=== PATIENT | female | born 1995 | race Hispanic/Latino ===

== ENCOUNTER 2023-08-12 10:42 | Emergency (ER) | payer SELFPAY ==
[2023-08-12 11:07] LABS: Absolute Lymphocytes (CBC) 1.1 K/uL (0.7-4.9); Absolute Neutrophil 8.9 K/uL (1.8-8.0); Basophils % 0.1 % (0-1.3); Eosinophils % 0.2 % (0-4.4); Hematocrit 33.4 % (36.0-45.0); Hemoglobin 10.8 g/dL (12.0-15.0); Lymphocytes % 9.8 % (15.3-44.8); MCH 29.7 pg (27.0-35.0); MCHC 32.5 g/dL (32.0-36.0); MCV 91.4 fL (80-100); MPV 8.9 fL (7.6-11.3); Neutrophils % 80.9 % (41.7-73.7); Platelets 252 thou/uL (152-406); RBC Red Blood Cell Count 3.65 M/uL (3.86-4.86); Red Cell Distribution Width 13.8 % (12.1-15.2)
[2023-08-12 11:13] LABS: Specific Gravity 1.015 (1.005-1.030)
[2023-08-12 11:16] LABS: Specific Gravity 1.015 (1.005-1.030); Sqamous Epithelial <5 /HPF (None Seen); Transitional Epithelial <5 /HPF (None Seen); Urine Bacteria <20 /HPF (<20); Urine Bilirubin NEGATIVE (Negative); Urine Blood 2+ (Negative); Urine Clarity Extremely Turbid (Clear); Urine Color Light-Yellow (Yellow); Urine Culture Reflex Order REFLEXED; Urine Glucose NEGATIVE (Negative); Urine Ketones NEGATIVE (Negative); Urine Microscopic Reflex YN ORDER UMIC; Urine Mucus Slight /HPF (None Seen); Urine Nitrite NEGATIVE (Negative); Urine Protein 1+ (Negative); Urine RBC 21-50 /HPF (None Seen); Urine Urobilinogen Normal (Normal); Urine WBC >50 /HPF (<5); Urine pH 5.5 (5.0-7.0)
[2023-08-12 11:26] LABS: Albumin 3.3 g/dL (3.4-5.0); Albumin/Globulin Ratio 0.7 (1.1-1.8); Anion Gap 9.6 mEq/L (5.0-15.0); Bilirubin Total 0.2 mg/dL (0.2-1.0); Globulin 4.7 g/dL (2.3-3.5); Potassium 3.6 mEq/L (3.5-5.1)
--- NOTE | 2023-08-12 11:41 | RAD REPORT ---
EXAM DESCRIPTION: CTAbdomen Pelvis W Contrast - 08/12/2023 11:30 am CLINICAL HISTORY: Abdominal pain. ABD PAIN COMPARISON: No comparisons TECHNIQUE: Biphasic CT imaging of the abdomen and pelvis was performed with 100 ml non-ionic IV cont rast. All CT scans are performed using dose optimization technique as appropriate and may include automated exposure control or mA/KV adjustment according to patient size. FINDINGS: The lung bases are clear. The liver, spleen, pancreas, adrenal glands and kidneys are within normal limits. No bowel obstruction, free air, intra-abdominal free fluid or abscess. Small volume of pelvic free fl uid is likely physiologic. The appendix is normal. No evidence of significant lymphadenopathy. No suspicious bony findings. IMPRESSION: No acute intra-abdominal or pelvic finding.
--- NOTE | 2023-08-12 11:44 | RAD REPORT ---
EXAM DESCRIPTION: US - Abdomen Exam Limited - 08/12/2023 11:37 am CLINICAL HISTORY: ABD PAIN COMPARISON: No comparisons FINDINGS: The gallbladder demonstrates no gallstones. No pericholecystic fluid or gallbladder wall t hickening. The common bile duct is normal measuring 4 mm. The liver demonstrates no findings of intrahepatic biliary dilatation. IMPRESSION: Unremarkable examination.
[2023-08-12] MEDS ORDERED: CIPROFLOXACIN HCL 500 MG TAB ONE (12:10)
--- NOTE | 2023-08-12 12:27 | RAD REPORT ---
EXAM DESCRIPTION: RAD - Chest Single View - 08/12/2023 12:21 pm CLINICAL HISTORY: right sided chest pain Chest pain. COMPARISON: No comparisons FINDINGS: Portable technique limits examination quality. The lungs are grossly clear. The heart is normal in size. No displaced fractures. IMPRESSION: No acute intrathoracic process suspected.
--- NOTE | 2023-08-12 12:36 | ER ---
Nurse's Notes [facility] Name: Ynes Ray Age: 28 yrs Sex: Female : 1995 Arrival Date: 08/12/2023 Time: 10:42 Bed 20 Private MD: Diagnosis: Abdominal pain, unspecified;UTI/ Urinary tract infection, site not specified Presentation: 08/11 10:48 Chief complaint: Patient states: lower abd pain radiating to back , X 1 week, + n/v, iw fever chills, no urinary symptoms. Coronavirus screen: Client presents with at least one sign or symptom that may indicate coronavirus-19. Ebola Screen: Patient negative for fever greater than or equal to 101.5 degrees Fahrenheit, and additional compatible Ebola Virus Disease symptoms Patient denies exposure to infectious person. Patient denies travel to an Ebola-affected area in the 21 days before illness onset. No symptoms or risks identified at this time. Initial Sepsis Screen: Does the patient meet any 2 criteria? No. Patient's initial sepsis screen is negative. Does the patient have a suspected source of infection? No. Patient's initial sepsis screen is negative. Risk Assessment: Do you want to hurt yourself or someone else? Patient reports no desire to harm self or others. Onset of symptoms was August 05, 2023. 10:48 Method Of Arrival: Ambulatory iw 10:48 Acuity: MARILYNN 3 iw Historical: - Allergies: 10:49 No Known Allergies; iw - Home Meds: 10:49 None [Active]; iw - PMHx: 10:49 None; iw - PSHx: 10:49 None; iw - Immunization history:: Adult Immunizations up to date. - Infectious Disease History:: Denies. - Social history:: Smoking status: Patient denies any tobacco usage or history of. - Family history:: not pertinent. - Hospitalizations: : No recent hospitalization is reported. Screenin:03 [facility] ED Fall Risk Assessment (Adult) History of falling in the last 3 months, ld1 including since admission No falls in past 3 months (0 pts). Abuse screen: Denies threats or abuse. Denies injuries from another. Nutritional screening: No deficits noted. Tuberculosis screening: No symptoms or risk factors identified. Assessment: 11:03 General: Appears in no apparent distress. uncomfortable, Behavior is calm, cooperative, ld1 appropriate for age. Pain: Complains of pain in right lower quadrant Pain does not radiate. Pain currently is 8 out of 10 on a pain scale. Quality of pain is described as throbbing, Pain began suddenly, Is continuous. Neuro: Level of Consciousness is awake, alert, obeys commands, Oriented to person, place, time, situation. Cardiovascular: Capillary refill < 3 seconds Patient's skin is warm and dry. Cardiovascular:. Respiratory: Airway is patent Respiratory effort is even, unlabored. GI: Abdomen is round non-distended, Bowel sounds present X 4 quads. Abd is soft Abdomen is tender to palpation in right lower quadrant and left lower quadrant Reports lower abdominal pain, nausea, vomiting. : No signs and/or symptoms were reported regarding the genitourinary system. EENT: No signs and/or symptoms were reported regarding the EENT system. Derm: No signs and/or symptoms reported regarding the dermatologic system. Musculoskeletal: No signs and/or symptoms reported regarding the musculoskeletal system. Vital Signs: 10:48 BP 121 / 54; Pulse 85; Resp 16; Temp 99; Pulse Ox 96% on R/A; Weight 78.47 kg; Height 5 iw ft. 2 in. ; Pain 8/10; 11:03 BP 111 / 65; Pulse 85; Resp 18; Pulse Ox 100% on R/A; Pain 8/10; ld1 10:48 Body Mass Index 31.64 (78.47 kg, 157.48 cm) iw 10:48 Pain Scale: Adult iw 11:03 Pain Scale: Adult ld1 ED Course: 10:43 Patient arrived in ED. rg4 10:43 Sonido Wilson MD is Attending Physician. rn 10:49 Triage completed. iw 10:50 Arm band placed on. iw 10:53 Marielle Tinoco, TONE is Primary Nurse. ld1 11:03 Patient has correct armband on for positive identification. Placed in gown. Bed in low ld1 position. Call light in reach. Side rails up X2. bin packer on. Pulse ox on. NIBP on. Door closed. Noise minimized. Warm blanket given. 11:03 Urinalysis w/ reflexes Sent. ld1 11:03 Test, Urine Sent. ld1 11:03 No provider procedures requiring assistance completed. Inserted saline lock: 20 gauge ld1 in right antecubital area, using aseptic technique. Blood collected. 11:32 CT Abd/Pelvis - IV Contrast Only In Process Unspecified. EDMS 11:39 US Abdomen Limited In Process Unspecified. EDMS 12:22 XRAY Chest (1 view) In Process Unspecified. EDMS Administered Medications: 12:16 Drug: Ciprofloxacin PO 500 mg PO once Route: PO; ld1 Medication: 11:03 VIS not applicable for this client. ld1 Outcome: 12:35 Discharge ordered by . rn 13:00 Patient left the ED. ld1 Signatures: Dispatcher [employer] EDMS Tila Salguero RN RN iw Nieto, Roman, MD MD rn Garcia, Rubi 4 Marielle Tinoco RN RN ld1 Corrections: (The following items were deleted from the chart) 10:50 10:48 Resp 16bpm; Pulse Ox 96% RA; Temp 99F; iw iw
--- NOTE | 2023-08-12 12:36 | EDPHYS ---
Physician Documentation [facility] Name: Ynes Ray Age: 28 yrs Sex: Female : 1995 Arrival Date: 08/12/2023 Time: 10:42 Bed 20 Private MD: ED Physician Sonido Wilson HPI: 08/11 10:59 This 28 yrs old Female presents to ER via Ambulatory with complaints of rn Abdominal Pain, Vomiting. 10:59 The patient presents to the emergency department with nausea, vomiting, abdominal pain. rn Onset: The symptoms/episode began/occurred 3 day(s) ago. Possible causes: unknown. The symptoms are aggravated by nothing. The symptoms are alleviated by nothing. Severity of symptoms: At their worst the symptoms were mild. The patient has not experienced similar symptoms in the past. The patient has not recently seen a physician. Patient reports right lower quadrant and right upper quadrant abdominal pain that began 3 to 4 days ago. Associated with nausea and vomiting and decreased appetite. Reports chills. No diarrhea. No blood in stool. No hematemesis.. Historical: - Allergies: 10:49 No Known Allergies; iw - Home Meds: 10:49 None [Active]; iw - PMHx: 10:49 None; iw - PSHx: 10:49 None; iw - Immunization history:: Adult Immunizations up to date. - Infectious Disease History:: Denies. - Social history:: Smoking status: Patient denies any tobacco usage or history of. - Family history:: not pertinent. - Hospitalizations: : No recent hospitalization is reported. ROS: 10:59 Constitutional: Negative for fever, chills, and weight loss, Cardiovascular: Negative rn for chest pain, palpitations, and edema, Respiratory: Negative for shortness of breath, cough, wheezing, and pleuritic chest pain, Abdomen/GI: Positive for abdominal pain and nausea Back: Negative for injury and pain, : Negative for injury, bleeding, discharge, and swelling, MS/Extremity: Negative for injury and deformity, Skin: Negative for injury, rash, and discoloration, Neuro: Negative for headache, weakness, numbness, tingling, and seizure, Exam: 10:59 Constitutional: This is a well developed, well nourished patient who is awake, alert, rn and in no acute distress. Cardiovascular: Regular rate and rhythm. No pulse deficits. Respiratory: No increased work of breathing, no retractions or nasal flaring. Abdomen/GI: Soft, mild epigastric and right upper quadrant tenderness without guarding or peritoneal signs. Vital Signs: 10:48 BP 121 / 54; Pulse 85; Resp 16; Temp 99; Pulse Ox 96% on R/A; Weight 78.47 kg; Height 5 iw ft. 2 in. ; Pain 8/10; 11:03 BP 111 / 65; Pulse 85; Resp 18; Pulse Ox 100% on R/A; Pain 8/10; ld1 10:48 Body Mass Index 31.64 (78.47 kg, 157.48 cm) iw 10:48 Pain Scale: Adult iw 11:03 Pain Scale: Adult ld1 MDM: 10:44 Patient medically screened. rn 12:34 Differential diagnosis: Nonspecific abd pain, gastritis, cholecystitis, pancreatitis, rn appendicitis, diverticulitis, viral gastroenteritis, gastroenteritis. Data reviewed: vital signs, nurses notes, lab test result(s), radiologic studies, CT scan, plain films, ultrasound, and as a result, I will discharge patient. Counseling: I had a detailed discussion with the patient and/or guardian regarding the historical points, exam findings, and any diagnostic results supporting the discharge/admit diagnosis, lab results, radiology results, the need for outpatient follow up, to return to the emergency department if symptoms worsen or persist or if there are any questions or concerns that arise at home. Response to treatment: the patient's symptoms have markedly improved after treatment, and as a result, I will discharge patient. Special discussion: Based on the patient's Hx, exam, and Dx evaluation, there is no indication for emergent surgery or inpatient Tx. It is understood by the patient/guardian that if the Sx's persist or worsen they need to return immediately for re-evaluation. I discussed with the patient/guardian in detail that at this point there is no indication for admission to the hospital. It is understood, however, that if the symptoms persist or worsen the patient needs to return immediately for re-evaluation. ED course: NO acute findings in workup other than possible UTI. CT abdomen/ultrasound/CXR all negative for acute findings. Will dc home with abx for UTI. I have personally reviewed all of the results, including but not limited to blood tests and imaging deemed necessary to safely discharge this patient at this time. All results given to and printed out for patient. I personally went over all the results with the patient and answered all questions. Patient will follow-up with PCP and or specialist as discussed. Return precautions given and understood.. 08/11 10:54 Order name: CBC with Diff; Complete Time: 11:42 ld1 08/11 10:54 Order name: CMP; Complete Time: 11:42 ld1 08/11 10:54 Order name: Lipase; Complete Time: 11:42 ld1 08/11 10:54 Order name: Urinalysis w/ reflexes; Complete Time: 11:42 ld1 08/11 10:55 Order name: Test, Urine; Complete Time: 11:42 rn 08/11 11:19 Order name: Urine Culture [facility] 08/11 10:55 Order name: US Abdomen Limited; Complete Time: 11:51 rn 08/11 10:55 Order name: XRAY Chest (1 view); Complete Time: 12:29 rn 08/11 10:55 Order name: CT Abd/Pelvis - IV Contrast Only; Complete Time: 11:42 rn 08/11 10:54 Order name: IV Saline Lock; Complete Time: 10:59 ld1 08/11 10:54 Order name: Labs collected and sent; Complete Time: 10:59 ld1 08/11 10:55 Order name: IV Saline Lock; Complete Time: 11:03 rn 08/11 10:55 Order name: Labs collected and sent; Complete Time: 11:03 rn Administered Medications: 12:16 Drug: Ciprofloxacin PO 500 mg PO once Route: PO; ld1 Disposition Summary: 08/12/23 12:35 Discharge Ordered Notes: Location: Home rn Problem: new rn Symptoms: have improved rn Condition: Stable rn Diagnosis - Abdominal pain, unspecified rn - UTI/ Urinary tract infection, site not specified rn Followup: rn - With: Private Physician - When: As needed - Reason: Recheck today's complaints, Re-evaluation by your physician Discharge Instructions: - Discharge Summary Sheet rn - Abdominal Pain, Adult rn - Urinary Tract Infection, Adult rn Forms: - Medication Reconciliation Form rn - Antibiotic undergraduate internship - Prescription Opioid Use rn - Patient Portal Instructions rn - Leadership Thank You Letter rn Prescriptions: - Cipro 500 mg Oral Tablet - take 1 tablet ORAL route every 12 hours for 7 days; 14 tablet; Refills: 0, rn Product Selection Permitted Signatures: Dispatcher [employer] EDMS Tila Salguero, Sonido Jacobs RN, MD MD rn Sims, Lauren, RN RN ld1 Corrections: (The following items were deleted from the chart) 10:55 10:55 CBC+H.LAB.BRZ ordered. EDMS EDMS 10:55 10:55 COMPREHENSIVE METABOLIC PANEL+C.LAB.BRZ ordered. EDMS EDMS 10:55 10:55 LIPASE+C.LAB.BRZ ordered. EDMS EDMS 10:55 10:55 Test, Urine+UC.LAB.BRZ ordered. EDMS EDMS 10:55 10:55 Urinalysis+U.LAB.BRZ ordered. EDMS EDMS 10:55 10:55 Abdomen Limited+US.RAD.BRZ ordered. EDMS EDMS 10:55 10:55 Chest Single View+RAD.RAD.BRZ ordered. EDMS EDMS 10:55 10:55 Abdomen Pelvis W Con+CT.RAD.BRZ ordered. EDMS EDMS
[2023-08-12 13:45] VITALS: BP 111/65; TEMP 99; O2SAT 100
== END 2023-08-12 13:00 | disposition home or self-care (01) ==
LOC: ER 10:42
DX: N39.0 Urinary tract infection, site not specified (principal)
CPT/HCPCS: 36415; 71045; 74177; 76705; 80053; 81001; 81025; 83690; 85025; 87077; 87086; 87088; 87186; 99284; Q9967